=== PATIENT | male | born 1980 | race African-American/Black ===

== ENCOUNTER 2017-02-23 12:28 | Emergency (ER) | payer MEDICAID ==
[~2017-02-23] VITALS: Ht 188 cm; Wt 85.3 kg
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
--- NOTE | 2017-02-23 13:16 | NUR ---
PT TO [facility]AN
[2017-02-23 15:17] VITALS: BP 135/80
--- NOTE | 2017-02-23 15:18 | NUR ---
Patient discharged to home in stable condition. Written and verbal after care instructions given. Patient verbalizes understanding of instruction. Prescription given.
== END 2017-02-23 15:18 | disposition home or self-care (01) ==
LOC: ER 12:30
DX: S13.9XXA Sprain of joints and ligaments of unspecified parts of neck, initial encounter (principal); V29.69XA Unspecified motorcycle rider injured in collision with other motor vehicles in traffic accident, initial encounter; Y93.89 Activity, other specified; Y92.89 Other specified places as the place of occurrence of the external cause; Y99.9 Unspecified external cause status
CPT/HCPCS: 70450; 72125; 99284; A4606; Z7610